=== PATIENT | male | born 1955 | race Caucasian/White ===

== ENCOUNTER 2018-04-23 16:47 | Emergency (ER) | payer MEDICARE, OTHER ==
[~2018-04-23] VITALS: Ht 182.9 cm; Wt 64.0 kg
[2018-04-23 19:15] LABS: BASOPHILS # (AUTO) 0.04 x10^3/uL (0-0.1); BASOPHILS % (AUTO) 1 % (0-1); EOSINOPHILS # (AUTO) 0.19 x10^3/uL (0-0.4); EOSINOPHILS % (AUTO) 3 % (1-7); LYMPHOCYTES # (AUTO) 2.38 x10^3/uL (1-3.4); LYMPHOCYTES % (AUTO) 36 % (22-44); MD NO; MEAN CORPUSCULAR HEMOGLOBIN 32.7 pg (27.5-34.5); MEAN CORPUSCULAR HGB CONC 33.6 g/dL (33.2-36.2); MEAN CORPUSCULAR VOLUME 97.2 fL (81-97); MEAN PLATELET VOLUME 7.5 fL (7.4-10.4); MONOCYTES # (AUTO) 0.42 x10^3/uL (0.2-0.8); MONOCYTES % (AUTO) 6 % (2-9); NEUTROPHILS % (AUTO) 54 % (42-75); PLATELET COUNT 253 x10^3/uL (130-400); RED BLOOD COUNT 5.19 x10^6/uL (4.38-5.82); RED CELL DISTRIBUTION WIDTH 13.1 % (9.4-14.8)
[2018-04-23 19:16] LABS: INTERNATIONAL NORMALIZED RATIO 0.95 (0.93-1.1); PROTHROMBIN TIME 10.1 Seconds (9.6-11.5)
[2018-04-23 19:19] LABS: ALANINE AMINOTRANSFERASE 17 U/L (12-78); ALBUMIN 3.8 g/dL (3.4-5.0); ANION GAP 7 mmol/L (5-15); CALCIUM 9.5 mg/dL (8.5-10.1); CHLORIDE 104 mmol/L (98-107); CREATININE 1.07 mg/dL (0.7-1.3)
[2018-04-23 19:21] LABS: ALKALINE PHOSPHATASE 85 U/L (45-117); BILIRUBIN,TOTAL 0.4 mg/dL (0.2-1.0); TOTAL PROTEIN 7.4 g/dL (6.4-8.2)
[2018-04-23] MEDS ORDERED: AMOXICILLIN/CLAV 875-125MG TABLET ONE (20:19)
[2018-04-23 20:23] VITALS: BP 134/72
[2018-04-23] MEDS ORDERED: AMOXICILLIN/CLAV 875-125MG TABLET PO ONE (20:30)
== END 2018-04-23 20:36 | disposition home or self-care (01) ==
LOC: ED 19:21
DX: L03.115 Cellulitis of right lower limb (principal); E78.5 Hyperlipidemia, unspecified; Z86.73 Personal history of transient ischemic attack (TIA), and cerebral infarction without residual deficits
CPT/HCPCS: 36415; 80053; 85025; 85610; 99284

== ENCOUNTER 2019-04-13 21:10 | Emergency (ER) | payer OTHER ==
[~2019-04-13] VITALS: Ht 182.9 cm; Wt 75.0 kg
[~2019-04-13 21:10] MED LIST: ASPI-496 PO; BACL20TA PO; DULO20CA45 PO; GABA300C10 PO; SIMV5TAB14 PO
--- NOTE | 2019-04-13 21:15 | NUR ---
PT BIB EMS D/T HIS BEING COMBATIVE WITH STAFF AT [facility], FACILITY RERFUSES TO TAKE PT BACK. PT AOX4, CONVERSES, CALM AND COOPERATIVE. PT BROUGHT IN WITH ALL BELONGINGS. PT PLACED IN GOWN, 2 BED RAILS RAISED, BED IN LOW POSITION.
[2019-04-13 21:36] VITALS: BP 122/75
--- NOTE | 2019-04-13 21:51 | NUR ---
PT WITH [facility]. SPOKE TO NAOMY IN BED CONTROL WHO REQUESTS ER TO ER TRANSFER THE ER HAS SOCIAL WORKERS AT THIS TIME. DR JEAN-BAPTISTE ACCEPTING AT [facility] ED.
--- NOTE | 2019-04-13 22:14 | NUR ---
LEGAL HOLD D/C PER DR. PECK POST EVAL. PT CALM AND COOPERATIVE, PROVIDED BLANKET. PT WATCHING TV.
--- NOTE | 2019-04-13 22:59 | NUR ---
PT RESTING ON Backand WATCHING TV. PT UPDATED ON POC AND AWAITING TRANSFER TO [facility]. PT VERBALIZED UNDERSTANDING. ALL SAFETY MEASURES IN PLACE, CALL LIGHT WITHIN REACH.
--- NOTE | 2019-04-13 23:02 | NUR ---
MISTI RN: JOSE EDUARDO AVILES, ETA [id number]
--- NOTE | 2019-04-13 23:16 | NUR ---
REPORT GIVEN TO PIPER INSTALLER AT [facility].
== END 2019-04-13 23:52 ==
LOC: ED 21:49 → EDIP 21:50 → UNDOADMIN 21:50 → EDIP 23:19 → ED 23:37
DX: R62.7 Adult failure to thrive (principal); E78.5 Hyperlipidemia, unspecified; F17.200 Nicotine dependence, unspecified, uncomplicated; Z86.73 Personal history of transient ischemic attack (TIA), and cerebral infarction without residual deficits; Z68.22 Body mass index [BMI] 22.0-22.9, adult
CPT/HCPCS: 99285